=== PATIENT | female | born 1970 | race Two or more races ===

== ENCOUNTER 2023-07-02 13:14 | Inpatient (IN) | payer OTHER ==
[~2023-07-02] VITALS: Ht 172.7 cm; Wt 91.1 kg
[2023-07-02] MEDS: ACETAMINOPHEN 325 MG TAB PO ONE (13:42)
[2023-07-02 14:23] LABS: Hemoglobin 12.9 g/dL (12.2-16.2)
[2023-07-02 14:26] LABS: Mean Corpuscular Hemoglobin 28.3 pg (28.0-32.0); Mean Corpuscular Volume 85.9 fL (80.0-100.0); Red Blood Cells 4.54 10^6/uL (4.0-5.20); Red Cell Distribution Width 13.3 % (11.8-14.3); White Blood Cell 16.7 10^3/uL (4.4-10.8)
[2023-07-02 14:29] LABS: Alanine Aminotransferase 15 U/L (7-40); Albumin 4.4 g/dL (3.2-4.8); Alkaline Phosphatase 85 U/L (46-116); Anion Gap 11 (5-15); Aspartate Aminotransferase 18 U/L (13-40); BUN/Creatinine Ratio 13.2 (10.0-20.0); Blood Urea Nitrogen 17 mg/dL (9-23); Carbon Dioxide 22 mmol/L (20-30); Chloride 102 mmol/L (98-107); Glucose 162 mg/dL (74-106); Lipase 55 U/L (12-53); Potassium 4.6 mmol/L (3.5-5.1); Sodium 135 mmol/L (136-145)
[2023-07-02 14:30] LABS: Bilirubin, Total 0.5 mg/dL (0.2-1.0); Total Protein 7.8 g/dL (5.7-8.2)
[2023-07-02 14:32] LABS: Basophils % (manual) 0 (0.0-2.0); Blast Cells 0; Eosinophils % (manual) 0 (0-7); Metamyelocytes % 0; Monocytes % (manual) 0 (0-12); Myelocytes % 0; Promyelocytes % 0; Reactive Lymphocytes 0
[2023-07-02 14:37] LABS: INR 1.08 (0.9-1.15); Partial Thromboplastin Time 26.2 SEC (24.5-34.5); Prothrombin Time 11.4 sec (9.3-11.8)
[2023-07-02] MEDS: MORPHINE SULFATE INJ 2 MG/ml SYRG IV ONE (14:45)
[2023-07-02] MEDS: METOCLOPRAMIDE HCL 5MG/ml INJ 2ml VIAL IV ONE (14:45)
[2023-07-02 14:48] LABS: Band Neutrophils % (manual) 13; Lymphocytes % (manual) 3 (10.0-50.0); Platelet Estimate Adequate
[2023-07-02] MEDS: SODIUM CHLORIDE 0.9% 1,000 ML IVB ONE (16:16)
[2023-07-02 16:42] LABS: Urine Bacteria FEW /hpf (None Seen); Urine Blood Negative /uL (Negative); Urine Clarity Clear (Clear); Urine Color Light-Yellow (Yellow); Urine Protein, UAD Negative (Negative); Urine Specific Gravity 1.016 (1.001-1.035); Urine Urobilinogen Normal (Negative); Urine WBC 10 /hpf (0 - 5)
[2023-07-02 17:53] VITALS: PULSE 94; RESP 18; O2SAT 95
[2023-07-02] MEDS ORDERED: MORPHINE SULFATE INJ 2 MG/ml SYRG IV PRN (18:00)
[2023-07-02] MEDS ORDERED: NITROGLYCERIN 0.4 MG SL TAB SL PRN (18:00)
[2023-07-02] MEDS: KETOROLAC TROMETH 30 MG/ML 1ML VIAL IV ONE (18:08)
[2023-07-02] MEDS: SODIUM CHLORIDE 0.9% 1,000 ML IV ONE (18:08)
[2023-07-02] MEDS: levoFLOXacin 750MG 150 ML IV ONE (18:14)
[2023-07-02] MEDS: TAMSULOSIN HYDROCHLORIDE 0.4 MG CAP PO SCH (18:18)
[2023-07-02] MEDS ORDERED: SERT100T PO (18:39)
[2023-07-02] MEDS ORDERED: CARV3.1240 PO (18:39)
[2023-07-02] MEDS ORDERED: ATOR20TA50 PO (18:39)
[2023-07-02] MEDS ORDERED: EZET-10 PO (18:39)
[2023-07-02] MEDS ORDERED: CLON0.5T4 PO (18:39)
[2023-07-02] MEDS ORDERED: DEXTROSE (50%) 50ML SYRG IV PRN (18:45)
[2023-07-02 20:10] VITALS: PULSE 93; RESP 14; O2SAT 95
[2023-07-02 20:40] VITALS: O2SAT 95
[2023-07-02] MEDS: ONDANSETRON HCL 4 MG/2 ML VIAL IV PRN (21:56)
[2023-07-02] MEDS: MORPHINE SULFATE INJ 2 MG/ml SYRG IV PRN (21:57)
[2023-07-02] MEDS: ACCU-CHEK COMFORT CURVE STRIP VI SCH (22:11)
[2023-07-02] MEDS: CARVEDILOL 3.125 MG TAB PO SCH (22:17)
[2023-07-02] MEDS: InsuLIN REG 1unit/0.01ml Soln (100units/ml) SC SCH (22:20)
[2023-07-02] MEDS: ACETAMINOPHEN 325 MG TAB PO PRN (23:00)
[2023-07-02 23:17] VITALS: BP 120/59; PULSE 97; RESP 19; TEMP 98.1; O2SAT 99
[2023-07-03] VITALS (12 sets, daily range): BP systolic 93–120; BP diastolic 48–67; PULSE 80–109; RESP 16–22; TEMP 97.4–100; O2SAT 92–100
[2023-07-03 05:10] LABS: Hemoglobin 11.4 g/dL (12.2-16.2); Mean Corpuscular Hgb Conc. 32.7 g/dL (32.0-36.0); Red Blood Cells 4.09 10^6/uL (4.0-5.20)
[2023-07-03 05:13] LABS: Mean Corpuscular Volume 85.4 fL (80.0-100.0); Red Cell Distribution Width 13.8 % (11.8-14.3)
[2023-07-03 05:19] LABS: White Blood Cell 34.5 10^3/uL (4.4-10.8)
[2023-07-03 05:20] LABS: Basophils % (manual) 0 (0.0-2.0); Blast Cells 0; Eosinophils % (manual) 0 (0-7); Metamyelocytes % 0; Myelocytes % 0; Promyelocytes % 0; Reactive Lymphocytes 0
[2023-07-03 05:42] LABS: Alanine Aminotransferase 14 U/L (7-40); Alkaline Phosphatase 69 U/L (46-116); Anion Gap 11 (5-15); Aspartate Aminotransferase 17 U/L (13-40); BUN/Creatinine Ratio 13.5 (10.0-20.0); Blood Urea Nitrogen 26 mg/dL (9-23); Calcium 8.9 mg/dL (8.7-10.4); Carbon Dioxide 21 mmol/L (20-30); Chloride 101 mmol/L (98-107); Glucose 132 mg/dL (74-106); Potassium 3.8 mmol/L (3.5-5.1); Sodium 133 mmol/L (136-145)
[2023-07-03 05:43] LABS: Albumin 3.5 g/dL (3.2-4.8); Bilirubin, Total 0.4 mg/dL (0.2-1.0)
[2023-07-03 06:06] LABS: Band Neutrophils % (manual) 4; Lymphocytes % (manual) 2 (10.0-50.0); Monocytes % (manual) 2 (0-12); Platelet Estimate Adequate
[2023-07-03] MEDS: HYDROcodone-ACET 5/325MG TAB PO PRN (06:09)
[2023-07-03] MEDS: VANCOMYCIN 1GM/200ML 200 ML IV ONE (06:59)
[2023-07-03] MEDS ORDERED: VANCOMYCIN PER PHARMACY 0 MG IV SCH (08:00)
[2023-07-03] MEDS: EZETIMIBE PO SCH (10:00)
[2023-07-03] MEDS ORDERED: ATENOLOL 25 MG TAB PO ONE (10:00)
[2023-07-03] MEDS: SERTRALINE HCL 50 MG TAB PO SCH (10:35)
[2023-07-03] MEDS: clonazePAM 0.5 MG TAB PO SCH (10:35)
[2023-07-03] MEDS: PANTOPRAZOLE 40 MG TAB PO SCH (10:36)
[2023-07-03] MEDS: levoFLOXacin 750MG 150 ML IV SCH (10:38)
[2023-07-03] MEDS: IPRATROPIUM BROM 0.5 MG/2.5ML INH SOL NEB PRN (18:59)
[2023-07-03] MEDS: ALBUTEROL SULF 2.5 MG/0.5ML(0.5%) NEB SOLN NEB PRN (18:59)
[2023-07-03] MEDS: ATORVASTATIN 20 MG TAB PO SCH (21:32)
[2023-07-04] VITALS (14 sets, daily range): BP systolic 88–143; BP diastolic 48–74; PULSE 83–119; RESP 16–26; TEMP 97.9–101; O2SAT 90–96
[2023-07-04] MEDS: VANCOMYCIN 1GM/200ML 200 ML IV SCH (02:50)
[2023-07-04] MEDS: IPRATROPIUM BROM 0.5 MG/2.5ML INH SOL NEB SCH (07:54)
[2023-07-04] MEDS: ALBUTEROL SULF 2.5 MG/0.5ML(0.5%) NEB SOLN NEB SCH (07:54)
[2023-07-04] MEDS: levoFLOXacin 750MG 150 ML IV SCH (10:01)
[2023-07-04] MEDS ORDERED: LIDOCAINE 2%HCL (LOCAL ANESTH.) INJ 20ML MDV ONE (12:19)
[2023-07-04] MEDS ORDERED: MIDAZOLAM HCL 2MG/2ML 2ml VIAL (1mg/ml) ONE (12:23)
[2023-07-04] MEDS ORDERED: fentaNYL CITRATE 100 MCG/2 ML VL ONE (12:23)
[2023-07-04] MEDS ORDERED: SODIUM CHLORIDE 0.9% 1,000 ML IV PRN (17:15)
[2023-07-04] MEDS: SODIUM CHLORIDE 0.9% 500 ML IV ONE (17:26)
[2023-07-05] VITALS (14 sets, daily range): BP systolic 93–108; BP diastolic 52–65; PULSE 75–104; RESP 16–20; TEMP 97.3–98.6; O2SAT 90–100
[2023-07-05 07:33] LABS: Basophils # (auto) 0 10 ^3/uL (0-0.2); Basophils % (auto) 0.1 % (0.0-2.0); Eosinophils # (auto) 0 10 ^3/uL (0-0.8); Eosinophils % (auto) 0.1 % (0.0-7.0); Hematocrit 31.2 % (36.0-46.0); Hemoglobin 10.3 g/dL (12.2-16.2); Lymphocytes # (auto) 0.7 10 ^3/uL (0.4-5.4); Lymphocytes % (auto) 3.2 % (10.0-50.0); Mean Corpuscular Hemoglobin 28.4 pg (28.0-32.0); Mean Corpuscular Hgb Conc. 33.1 g/dL (32.0-36.0); Mean Corpuscular Volume 85.7 fL (80.0-100.0); Monocytes # (auto) 0.6 10 ^3/uL (0-1.3); Monocytes % (auto) 2.5 % (0.0-12.0); Neutrophils # (auto) 20.9 10 ^3/uL (1.6-8.6); Neutrophils % (auto) 94.1 % (37.0-80.0); Red Blood Cells 3.64 10^6/uL (4.0-5.20); Red Cell Distribution Width 14.4 % (11.8-14.3); White Blood Cell 22.2 10^3/uL (4.4-10.8)
[2023-07-05 07:52] LABS: Alanine Aminotransferase 10 U/L (7-40); Albumin 3.4 g/dL (3.2-4.8); Alkaline Phosphatase 94 U/L (46-116); Anion Gap 9 (5-15); Aspartate Aminotransferase 26 U/L (13-40); BUN/Creatinine Ratio 14.8 (10.0-20.0); Bilirubin, Total 0.4 mg/dL (0.2-1.0); Blood Urea Nitrogen 32 mg/dL (9-23); Calcium 8.5 mg/dL (8.5-10.1); Carbon Dioxide 21 mmol/L (20-30); Chloride 103 mmol/L (98-107); Glucose 112 mg/dL (74-106); Potassium 3.8 mmol/L (3.5-5.1); Sodium 133 mmol/L (136-145); Total Protein 6.2 g/dL (5.7-8.2)
[2023-07-05] MEDS: SODIUM CHLORIDE 0.9% 1,000 ML IV ONE (22:35)
[2023-07-05] MEDS: MEROPENEM 1GM IVPB 50 ML IV SCH (22:38)
[2023-07-05] MEDS: SODIUM CHLORIDE 0.9% 1,000 ML IV SCH (23:58)
[2023-07-06] VITALS (13 sets, daily range): BP systolic 101–123; BP diastolic 54–75; PULSE 64–97; RESP 16–20; TEMP 97.2–98.4; O2SAT 91–100
[2023-07-06 07:29] LABS: Anion Gap 9 (5-15); Carbon Dioxide 19 mmol/L (20-30); Chloride 104 mmol/L (98-107); Potassium 3.7 mmol/L (3.5-5.1); Sodium 132 mmol/L (136-145)
[2023-07-06 07:31] LABS: Calcium 8.7 mg/dL (8.5-10.1)
[2023-07-06 07:35] LABS: BUN/Creatinine Ratio 16.5 (10.0-20.0); Blood Urea Nitrogen 27 mg/dL (9-23); Glucose 119 mg/dL (74-106)
[2023-07-06] MEDS: MEROPENEM 1GM IVPB 50 ML IV SCH (11:07)
[2023-07-07] VITALS (15 sets, daily range): BP systolic 112–148; BP diastolic 46–76; PULSE 66–97; RESP 14–20; TEMP 97.8–98.7; O2SAT 93–100
[2023-07-07 05:04] LABS: Basophils # (auto) 0 10 ^3/uL (0-0.2); Basophils % (auto) 0.1 % (0.0-2.0); Eosinophils # (auto) 0.1 10 ^3/uL (0-0.8); Eosinophils % (auto) 1.2 % (0.0-7.0); Hematocrit 31.2 % (36.0-46.0); Hemoglobin 10.4 g/dL (12.2-16.2); Lymphocytes # (auto) 0.5 10 ^3/uL (0.4-5.4); Lymphocytes % (auto) 5.6 % (10.0-50.0); Mean Corpuscular Hemoglobin 28.4 pg (28.0-32.0); Mean Corpuscular Hgb Conc. 33.3 g/dL (32.0-36.0); Mean Corpuscular Volume 85.4 fL (80.0-100.0); Monocytes # (auto) 0.9 10 ^3/uL (0-1.3); Neutrophils # (auto) 8.2 10 ^3/uL (1.6-8.6); Neutrophils % (auto) 84.1 % (37.0-80.0); Nucleated Red Blood Cells % 0.1 %; Red Blood Cells 3.65 10^6/uL (4.0-5.20); Red Cell Distribution Width 14.6 % (11.8-14.3); White Blood Cell 9.7 10^3/uL (4.4-10.8)
[2023-07-08] VITALS (15 sets, daily range): BP systolic 123–160; BP diastolic 60–84; PULSE 72–94; RESP 16–20; TEMP 97.8–98.5; O2SAT 91–100
[2023-07-08] MEDS: DOCUSATE SOD 100 MG CAP PO PRN (06:34)
[2023-07-08 12:18] LABS: INR 1.11 (0.9-1.15); Partial Thromboplastin Time 25.4 SEC (24.5-34.5); Prothrombin Time 11.7 sec (9.3-11.8)
[2023-07-09] VITALS (9 sets, daily range): BP systolic 139–157; BP diastolic 70–83; PULSE 74–94; RESP 16–19; TEMP 97.6–98.7; O2SAT 94–98
[2023-07-09] MEDS ORDERED: TAMS-35 PO (10:46)
[2023-07-09] MEDS ORDERED: HYDR-4902 PO (10:46)
[2023-07-09] MEDS: VANCOMYCIN 1GM/200ML 200 ML IV ONE (13:11)
[2023-07-09] MEDS: ERTAPENEM SOD INJ 1 GM in SODIUM CHL 0.9% 50 ML IV ONE (13:15)
[2023-07-10] MEDS ORDERED: ERTAPENEM SOD INJ 1 GM in SODIUM CHL 0.9% 50 ML IV SCH (10:00)
== END 2023-07-09 16:20 | disposition home or self-care (01) | DRG 690 ==
LOC: EDBD 13:14 → ER 13:14 → TELE 17:54 → TELE-WESTW 17:58
PROVIDERS: ADMIT Internal Medicine; ATTEND Internal Medicine
PROC: 0T943ZZ Drainage of Left Kidney Pelvis, Percutaneous Approach (ICD-10-PCS; principal; 2023-07-04)
PROC: BT12YZZ Fluoroscopy of Left Kidney using Other Contrast (ICD-10-PCS; 2023-07-04)
PROC: 05HB33Z Insertion of Infusion Device into Right Basilic Vein, Percutaneous Approach (ICD-10-PCS; 2023-07-08)
PROC: B54MZZA Ultrasonography of Right Upper Extremity Veins, Guidance (ICD-10-PCS; 2023-07-08)
DX: N13.6 Pyonephrosis (principal); R78.81 Bacteremia; N17.9 Acute kidney failure, unspecified; I10 Essential (primary) hypertension; E11.9 Type 2 diabetes mellitus without complications; E78.5 Hyperlipidemia, unspecified; F31.9 Bipolar disorder, unspecified; Z87.442 Personal history of urinary calculi; Z88.0 Allergy status to penicillin; Z79.899 Other long term (current) drug therapy; Z90.711 Acquired absence of uterus with remaining cervical stump
CPT/HCPCS: 36415; 74176; 74425; 76942; 80048; 80053; 80202; 81001; 82565; 82962; 83605; 83690; 84484; 84702; 85007; 85025; 85027; 85610; 85730; 87040; 87077; 87086; 87088; 87186; 94640; 99152; G0378; J1335; J1815; J1885; J1956; J2185; J2250; J2405

== ENCOUNTER 2023-07-13 12:22 | Emergency (ER) | payer OTHER ==
[~2023-07-13] VITALS: Ht 175.3 cm; Wt 84.8 kg
[~2023-07-13 12:22] MED LIST: ATOR20TA50 PO; CARV3.1240 PO; CLON0.5T4 PO; EZET-10 PO; HYDR-4902 PO; SERT100T PO; TAMS-35 PO
[2023-07-13] MEDS: ERTAPENEM SOD INJ 1 GM in SODIUM CHL 0.9% 50 ML IV ONE (15:41)
[2023-07-13 16:08] VITALS: BP 125/88; PULSE 89; RESP 18; TEMP 97.9; O2SAT 99
== END 2023-07-13 16:07 | disposition home or self-care (01) ==
LOC: ER 12:22
DX: T82.42XA Displacement of vascular dialysis catheter, initial encounter (principal); Z79.899 Other long term (current) drug therapy; Z88.0 Allergy status to penicillin
CPT/HCPCS: 96365; 99284; J1335

== ENCOUNTER 2023-08-27 15:46 | Emergency (ER) | payer OTHER ==
[~2023-08-27] VITALS: Ht 172.7 cm; Wt 85.6 kg
[2023-08-27 18:43] VITALS: BP 122/65; PULSE 78; RESP 18; TEMP 98.2; O2SAT 96
== END 2023-08-27 19:24 | disposition home or self-care (01) ==
LOC: ER 15:46
DX: T81.89XD Other complications of procedures, not elsewhere classified, subsequent encounter (principal); Z88.0 Allergy status to penicillin; Z79.899 Other long term (current) drug therapy; Z79.1 Long term (current) use of non-steroidal anti-inflammatories (NSAID); Z87.442 Personal history of urinary calculi

== ENCOUNTER 2023-09-09 16:27 | Inpatient (IN) | payer OTHER ==
[~2023-09-09] VITALS: Ht 172.7 cm; Wt 102.7 kg
[2023-09-09 17:16] VITALS: PULSE 91; RESP 20; O2SAT 95
[2023-09-09] MEDS ORDERED: AMLO1TAB21 PO (17:41)
[2023-09-09] MEDS ORDERED: LOS25T PO (17:41)
[2023-09-09 21:00] VITALS: BP 165/93; PULSE 85; RESP 18; TEMP 98.2; O2SAT 95
[2023-09-09] MEDS: KETOROLAC TROMETH 30 MG/ML 1ML VIAL IV PRN (21:23)
[2023-09-09] MEDS: cloNIDine HCL 0.1 MG TAB PO ONE (23:08)
[2023-09-10] VITALS (8 sets, daily range): BP systolic 140–160; BP diastolic 76–85; PULSE 60–73; RESP 18–19; TEMP 97.6–98.1; O2SAT 93–96
[2023-09-10 06:53] LABS: Anion Gap 7 (5-15); Carbon Dioxide 27 mmol/L (20-30); Chloride 102 mmol/L (98-107); Potassium 3.6 mmol/L (3.5-5.1); Sodium 136 mmol/L (136-145)
[2023-09-10 06:54] LABS: Basophils # (auto) 0 10 ^3/uL (0-0.2); Basophils % (auto) 0.6 % (0.0-2.0); Calcium 9.4 mg/dL (8.7-10.4); Eosinophils # (auto) 0.4 10 ^3/uL (0-0.8); Hematocrit 36.4 % (36.0-46.0); Hemoglobin 12.5 g/dL (12.2-16.2); Lymphocytes # (auto) 2.2 10 ^3/uL (0.4-5.4); Lymphocytes % (auto) 31.8 % (10.0-50.0); Mean Corpuscular Hemoglobin 28.4 pg (28.0-32.0); Mean Corpuscular Hgb Conc. 34.4 g/dL (32.0-36.0); Mean Corpuscular Volume 82.6 fL (80.0-100.0); Monocytes # (auto) 0.5 10 ^3/uL (0-1.3); Monocytes % (auto) 6.5 % (0.0-12.0); Neutrophils # (auto) 3.9 10 ^3/uL (1.6-8.6); Neutrophils % (auto) 56.1 % (37.0-80.0); Nucleated Red Blood Cells % 0.1 %; Red Blood Cells 4.41 10^6/uL (4.0-5.20); Red Cell Distribution Width 14.7 % (11.8-14.3)
[2023-09-10 06:59] LABS: BUN/Creatinine Ratio 12.5 (10.0-20.0); Blood Urea Nitrogen 12 mg/dL (9-23); Glucose 164 mg/dL (74-106); INR 1.01 (0.9-1.15); Partial Thromboplastin Time 27.6 SEC (24.5-34.5); Prothrombin Time 10.7 sec (9.3-11.8)
[2023-09-10] MEDS ORDERED: BUDE1AER16 INH (08:17)
[2023-09-10] MEDS ORDERED: EMPA1TAB3 PO (08:17)
[2023-09-10] MEDS ORDERED: GAB100C PO (08:17)
[2023-09-10] MEDS: cefTRIAXone 1GM/50ML D5W 50 ML IV ONE (10:45)
[2023-09-10] MEDS: HYDROmorphone HCL 2 MG/ML VL/or syr IV PRN (11:05)
[2023-09-10 11:08] LABS: Urine Bacteria MANY /hpf (None Seen); Urine Blood 2+ /uL (Negative); Urine Budding Yeast MODERATE /hpf (None Seen); Urine Clarity Ex.Turbid (Clear); Urine Color Colorless (Yellow); Urine Mucus FEW (None Seen); Urine Protein, UAD 1+ (Negative); Urine Specific Gravity 1.015 (1.001-1.035); Urine Urobilinogen Normal (Negative); Urine WBC 1003 /hpf (0 - 5); Urine WBC Clumps PRESENT /hpf (None Seen); Urine pH 5.5 (5.0-9.0)
[2023-09-10] MEDS: InsuLIN REG 1unit/0.01ml Soln (100units/ml) SC SCH (12:00)
[2023-09-10] MEDS: ACCU-CHEK COMFORT CURVE STRIP VI SCH (12:00)
[2023-09-10] MEDS ORDERED: DEXTROSE (50%) 50ML SYRG IV PRN (12:00)
[2023-09-10] MEDS ORDERED: MEROPENEM 500MG IVPB 50 ML IV ONE ×2 (15:15→15:30)
[2023-09-10] MEDS ORDERED: METF-372 PO (15:24)
[2023-09-10] MEDS: MEROPENEM 1GM IVPB 50 ML IV SCH (15:30)
[2023-09-10] MEDS ORDERED: MEPERIDINE HCL (50 MG/ML) 1 ML VIAL ONE (17:29)
[2023-09-10] MEDS ORDERED: LIDOCAINE 2% JELLY 11ml (GLYDO) ONE (17:30)
[2023-09-10] MEDS ORDERED: MIDAZOLAM HCL 2MG/2ML 2ml VIAL (1mg/ml) ONE (17:30)
[2023-09-10] MEDS ORDERED: fentaNYL CITRATE 100 MCG/2 ML VL ONE (18:03)
[2023-09-10] MEDS ORDERED: PROPOFOL 10 MG/ML 20 ML IV ONE (18:12)
[2023-09-10] MEDS ORDERED: DexAMETHasone SOD PHOS 10MG/1ML VIAL INJ ONE (18:12)
[2023-09-10] MEDS ORDERED: ONDANSETRON HCL 4 MG/2 ML VIAL ONE (18:12)
[2023-09-10] MEDS: IOHEXOL 300 MG/ML 100ML BOTTLE IJ ONE (18:20)
[2023-09-10] MEDS ORDERED: ONDANSETRON HCL 4 MG/2 ML VIAL IV ONE (19:00)
[2023-09-10] MEDS ORDERED: MORPHINE SULFATE 4 MG/ML SYR/VIAL IV PRN (19:00)
[2023-09-10] MEDS ORDERED: HYDROmorphone HCL 2 MG/ML VL/or syr IV PRN (19:00)
[2023-09-10] MEDS ORDERED: MIDAZOLAM HCL 2MG/2ML 2ml VIAL (1mg/ml) IV PRN (19:00)
[2023-09-10] MEDS ORDERED: ACCU-CHEK COMFORT CURVE STRIP VI ONE (19:00)
[2023-09-10] MEDS ORDERED: ePHEDrine SULFATE 50 MG/ML AMP IV PRN (19:00)
[2023-09-10] MEDS ORDERED: MEROPENEM 500MG IVPB 50 ML IV SCH (22:00)
[2023-09-11] VITALS (8 sets, daily range): BP systolic 117–158; BP diastolic 70–83; PULSE 73–88; RESP 16–20; TEMP 97.9–98.4; O2SAT 93–98
[2023-09-11] MEDS ORDERED: DEXTROSE (50%) 50ML SYRG IV PRN (06:15)
[2023-09-11] MEDS: ACCU-CHEK COMFORT CURVE STRIP VI SCH (06:29)
[2023-09-11] MEDS: InsuLIN REG 1unit/0.01ml Soln (100units/ml) SC SCH (06:33)
[2023-09-11 06:51] LABS: Basophils # (auto) 0 10 ^3/uL (0-0.2); Eosinophils # (auto) 0 10 ^3/uL (0-0.8); Hematocrit 37.3 % (36.0-46.0); Hemoglobin 12.6 g/dL (12.2-16.2); Lymphocytes # (auto) 0.7 10 ^3/uL (0.4-5.4); Lymphocytes % (auto) 4.4 % (10.0-50.0); Mean Corpuscular Hemoglobin 28.1 pg (28.0-32.0); Mean Corpuscular Hgb Conc. 33.8 g/dL (32.0-36.0); Mean Corpuscular Volume 83.1 fL (80.0-100.0); Monocytes # (auto) 0.3 10 ^3/uL (0-1.3); Monocytes % (auto) 1.7 % (0.0-12.0); Neutrophils # (auto) 14.1 10 ^3/uL (1.6-8.6); Neutrophils % (auto) 93.9 % (37.0-80.0); Red Blood Cells 4.49 10^6/uL (4.0-5.20); Red Cell Distribution Width 14.6 % (11.8-14.3); White Blood Cell 15.1 10^3/uL (4.4-10.8)
[2023-09-11 07:02] LABS: Chloride 98 mmol/L (98-107); Potassium 4.2 mmol/L (3.5-5.1)
[2023-09-11 07:03] LABS: Anion Gap 9 (5-15); Calcium 9.8 mg/dL (8.7-10.4); Carbon Dioxide 24 mmol/L (20-30)
[2023-09-11 07:09] LABS: BUN/Creatinine Ratio 12.7 (10.0-20.0); Blood Urea Nitrogen 14 mg/dL (9-23); Glucose 336 mg/dL (74-106)
[2023-09-11 07:11] LABS: Sodium 131 mmol/L (136-145)
[2023-09-11] MEDS: FAMOTIDINE 20 MG TAB PO SCH (08:30)
[2023-09-11] MEDS ORDERED: cefTRIAXone 1GM/50ML D5W 50 ML IV SCH (09:00)
[2023-09-11] MEDS: MAALOX PLUS or MAALOX 30 ML PO ONE (11:10)
[2023-09-11] MEDS ORDERED: TAMS1CAP25 PO (18:55)
[2023-09-12] VITALS (7 sets, daily range): BP systolic 136–176; BP diastolic 73–93; PULSE 72–83; RESP 17–18; TEMP 36.7; O2SAT 94–96
[2023-09-12 06:01] LABS: Anion Gap 8 (5-15); Calcium 8.9 mg/dL (8.7-10.4); Carbon Dioxide 21 mmol/L (20-30); Chloride 106 mmol/L (98-107); Potassium 3.6 mmol/L (3.5-5.1); Sodium 135 mmol/L (136-145)
[2023-09-12 06:05] LABS: BUN/Creatinine Ratio 8.3 (10.0-20.0); Blood Urea Nitrogen 7 mg/dL (9-23); Glucose 172 mg/dL (74-106)
[2023-09-12 06:38] LABS: Basophils # (auto) 0 10 ^3/uL (0-0.2); Basophils % (auto) 0.4 % (0.0-2.0); Eosinophils # (auto) 0.1 10 ^3/uL (0-0.8); Eosinophils % (auto) 0.9 % (0.0-7.0); Hematocrit 33.6 % (36.0-46.0); Hemoglobin 11.7 g/dL (12.2-16.2); Lymphocytes % (auto) 18.8 % (10.0-50.0); Mean Corpuscular Hemoglobin 28.7 pg (28.0-32.0); Mean Corpuscular Hgb Conc. 34.9 g/dL (32.0-36.0); Mean Corpuscular Volume 82.4 fL (80.0-100.0); Monocytes # (auto) 0.7 10 ^3/uL (0-1.3); Monocytes % (auto) 6.6 % (0.0-12.0); Neutrophils % (auto) 73.3 % (37.0-80.0); Red Blood Cells 4.08 10^6/uL (4.0-5.20); Red Cell Distribution Width 14.9 % (11.8-14.3); White Blood Cell 10.9 10^3/uL (4.4-10.8)
[2023-09-12] MEDS ORDERED: CEFD300C2 PO (10:22)
[2023-09-12] MEDS ORDERED: BACDST PO (14:24)
[2023-09-12] MEDS ORDERED: amLODIPine BESYLATE 5 MG TAB PO ONE (14:45)
[2023-09-12] MEDS: hydrALAZINE HCL 20 MG/ML VL IV ONE ×2 (14:52→16:06)
== END 2023-09-12 16:53 | disposition home or self-care (01) | DRG 659 ==
LOC: EAST 16:48
PROVIDERS: ADMIT Internal Medicine Geriatric Medicine; ATTEND Internal Medicine Geriatric Medicine
PROC: 0T778DZ Dilation of Left Ureter with Intraluminal Device, Via Natural or Artificial Opening Endoscopic (ICD-10-PCS; 2023-09-10)
PROC: 0TP5X0Z Removal of Drainage Device from Kidney, External Approach (ICD-10-PCS; 2023-09-10)
PROC: 0TF78ZZ Fragmentation in Left Ureter, Via Natural or Artificial Opening Endoscopic (ICD-10-PCS; principal; 2023-09-10 17:45)
DX: T83.512A Infection and inflammatory reaction due to nephrostomy catheter, initial encounter (principal); A41.9 Sepsis, unspecified organism; N20.1 Calculus of ureter; I10 Essential (primary) hypertension; E78.5 Hyperlipidemia, unspecified; F31.9 Bipolar disorder, unspecified; E11.9 Type 2 diabetes mellitus without complications; Y83.8 Other surgical procedures as the cause of abnormal reaction of the patient, or of later complication, without mention of misadventure at the time of the procedure; Z87.442 Personal history of urinary calculi; Z88.0 Allergy status to penicillin; Z82.49 Family history of ischemic heart disease and other diseases of the circulatory system; Z90.710 Acquired absence of both cervix and uterus; Y92.89 Other specified places as the place of occurrence of the external cause
CPT/HCPCS: 36415; 71045; 74018; 76000; 80048; 81001; 82962; 85025; 85610; 85730; 86850; 86900; 86901; 87040; 87077; 87086; 87186; 87205; G0378; J1100; J1815; J1885; J2185; J2250; J2405; J2704